=== PATIENT | male | born 1985 | race Caucasian/White ===

== ENCOUNTER 2019-11-18 22:40 | Emergency (ER) | payer OTHER, SELFPAY ==
--- NOTE | ~2019-11-18 | XR_ITS ---
EXAMINATION: XR chest 1V portable DATE: 11/18/2019 23:22 INDICATION: Palpitations. Tachycardia. Shortness of breath. TECHNIQUE: A single frontal view of the chest was obtained. COMPARISON: Chest 2 views 09/08/2016 FINDINGS: There is mild atelectasis in left lower lung zone. No pleural effusion or pneumothorax. The heart size is normal. IMPRESSION: 1. Mild atelectasis in left lower lung zone. Reviewed, dictated and finalized at location A.
[2019-11-18 22:39] VITALS: BP 157/103; PULSE 111; RESP 17; O2SAT 100
--- NOTE | 2019-11-18 22:59 | ECG_ITS ---
Measurements Intervals [place] Rate: 83 P: 39 [place]: 127 QRS: 27 QRSD: 89 T: 29 QT: 347 QTc: 409 Interpretive Statements SINUS RHYTHM WITH SINUS ARRHYTHMIA INCOMPLETE RIGHT BUNDLE BRANCH BLOCK BASELINE ARTIFACT- I, II, AVF BORDERLINE ECG Electronically Signed On 11-19-2019 7:03:17 CDT by Jesús Chamberlain D.O.
[2019-11-18] MEDS: SODIUM CHLORIDE 0.9% IV 1,000 ML 999 ML IV CONT (23:20)
--- NOTE | 2019-11-18 23:22 | ED.ARRPALP ---
HPI - Arrhythmia/Palpitations General Chief Complaint: Arrhythmia/Palpitations Stated Complaint: chest fluttering Time Seen by Provider: 11/18/19 23:10 Source: patient Mode of arrival: EMS Limitations: no limitations History of Present Illness HPI narrative: Patient is a 34-year-old male who presents to the emergency department with complaint of fluttering sensation of his heart. Patient states he has had this for years off and on. Patient states anytime he tries to do anything he feels fluttering that becomes intolerable. Patient was reportedly in atrial fibrillation per EMS. Patient denies diagnosis of heart arrhythmia. Patient states he had been treated for hypertension previously and has been treated for anxiety. MD complaint: palpitations Duration: intermittent Related Data Allergies Allergy/AdvReac Type Severity Reaction Status Date / Time No Known Allergies Allergy Unknown Unverified 11/18/19 22:47 Review of Systems Review of Systems: All systems reviewed & are unremarkable except as noted in HPI and below Cardiovascular: Cardiovascular: Denies chest pain and Reports palpitations PMFSH Past Medical History Medical History Anxiety Hypertension Social History Social History Smoking status: Former smoker Alcohol intake: former Substance use: former Exam Const: General: cooperative, no acute distress and alert Nutritional Appearance: well nourished Orientation/consciousness: patient oriented x3 Limitations: no limitations HENMT: Mouth: Yes lip normal and Yes moist mucous membranes Resp: Effort & Inspection: normal respiratory effort Auscultation: clear to auscultation bilaterally Cardio: Rate: regular rate Rhythm: regular rhythm GI: GI Palp: Yes Soft to palpation and No Tenderness to palpation present (GI) Auscultation: normal bowel sounds Skin: General skin exam: normal color Neuro: General: patient oriented x3 Cognition (Neuro): normal cognition Speech: normal speech Extrem: General: normal to inspection, full ROM and no clubbing, cyanosis or edema Psych: Mental Status: mental status grossly normal Affect: normal affect Attitude: cooperative Course Course Emergency Course: Patient remained in normal sinus rhythm throughout his ED stay. No evidence of atrial fibrillation or arrhythmia noted. Patient ambulated with supervisor landscape and no evidence of arrhythmia noted.. Patient advised to follow-up with primary care physician for further evaluation and to discuss possible Holter monitoring. Vital Signs Vital signs: Vital Signs Pulse Rate 111 H 11/18/19 22:39 Respiratory Rate 17 11/18/19 22:39 Blood Pressure 157/103 H 11/18/19 22:39 Pulse Oximetry 100 11/18/19 22:39 Pulse Rate 74 11/18/19 23:49 Respiratory Rate 16 11/18/19 23:49 Blood Pressure 139/84 11/18/19 23:49 Pulse Oximetry 97 11/18/19 23:49 MDM - Arrhythmia/Palpitations Medical Records Attestation: I reviewed the patient's medical records. Lab Data Attestation: I reviewed the patient's lab results. Result diagrams: 11/18/19 23:17 11/18/19 23:17 Labs: Lab Results 11/18/19 11/18/19 11/18/19 Range/Units 23:17 23:17 23:17 WBC 8.7 (4.5-10.0) K/mm3 RBC 5.16 (4.6-6.20) M/mm3 Hgb 15.8 (14.0-18.0) g/dL Hct 45.3 (42.0-52.0) % MCV 87.8 (80-100) fl MCH 30.6 (26-34) pg MCHC 34.9 (32-36) g/dl RDW 12.6 (11.5-14.5) % Plt Count 231 (150-375) k/mm3 MPV 10.9 H (7.4-10.4) fl Immature Gran % (Auto) 0.5 (0-0.5) % Neut % (Auto) 65.4 (45.5-73.1) % Lymph % (Auto) 21.4 (18.3-44.2) % [place] % (Auto) 9.0 H (2.6-8.5) % Eos % (Auto) 3.2 (0-4.4) % Baso % (Auto) 0.5 (0.2-1.2) % Lymph # (Auto) 1.86 (0.9-3.2) K/mm3 [place] # (Auto) 0.8 H (0.1-0.6) K/mm3 Eos # (Auto) 0.3 (0-0.3) K/
[2019-11-18 23:25] LABS: Basophils Percent Auto 0.5 % (0.2-1.2); Eosinophils Absolute Auto 0.3 K/mm3 (0-0.3); Eosinophils Percent Auto 3.2 % (0-4.4); Hematocrit 45.3 % (42.0-52.0); Hemoglobin 15.8 g/dL (14.0-18.0); Immature Granulocyte Absolute 0.04 K/mm3 (0.00-0.031); Immature Granulocyte Percent A 0.5 % (0-0.5); Lymphocytes Absolute Auto 1.86 K/mm3 (0.9-3.2); Lymphocytes Percent Auto 21.4 % (18.3-44.2); Mean Corpuscular HGB Conc 34.9 g/dl (32-36); Mean Corpuscular Hemoglobin 30.6 pg (26-34); Mean Corpuscular Volume 87.8 fl (80-100); Mean Platelet Volume 10.9 fl (7.4-10.4); Monocytes Absolute Auto 0.8 K/mm3 (0.1-0.6); Neutrophils Absolute Auto 5.7 K/mm3 (1.3-6.7); Neutrophils Percent Auto 65.4 % (45.5-73.1); Platelet Count Result 231 k/mm3 (150-375); Red Blood Count 5.16 M/mm3 (4.6-6.20); Red Cell Distribution Width 12.6 % (11.5-14.5); White Blood Count 8.7 K/mm3 (4.5-10.0)
[2019-11-18 23:41] LABS: Alanine Aminotransferase 31 U/L (4-50); Albumin Level 4.6 g/dL (3.5-5.1); Alkaline Phosphatase 71 U/L (38-126); Aspartate Amino Transferase 31 U/L (17-59); Bilirubin,Total 0.5 mg/dL (0.2-1.3); Blood Urea Nitrogen 15 mg/dL (9-20); Calcium 9.3 mg/dL (8.4-10.2); Carbon Dioxide 23 mmol/L (22-30); Chloride 102 mmol/L (98-107); Estimated Glomerular Filt Rate > 60; Glucose 118 mg/dL (75-110); Potassium 3.9 mmol/L (3.4-5.0); Sodium 135 mmol/L (137-145)
[2019-11-18 23:42] LABS: Magnesium 2.1 mg/dL (1.6-2.3)
[2019-11-18 23:49] VITALS: BP 139/84; PULSE 74; RESP 16; O2SAT 97
[2019-11-18 23:52] LABS: D Dimer 0.27 ug/mL (<0.48)
[2019-11-18 23:53] LABS: Troponin I < 0.012 ng/mL (0.000-0.034)
[2019-11-19 01:30] VITALS: BP 113/79; PULSE 77; RESP 12; O2SAT 97
== END 2019-11-19 01:30 | disposition home or self-care (01) ==
PROVIDERS: Emergency Medicine; Emergency Provider Emergency Medicine; PCP Family Medicine
DX: R00.2 Palpitations (principal); I45.10 Unspecified right bundle-branch block; Z87.891 Personal history of nicotine dependence
CPT/HCPCS: 36415; 71045; 80053; 83735; 84443; 84484; 85025; 85380; 93005; 99284; J7030

== ENCOUNTER 2020-09-09 14:30 | Outpatient (CLI) | payer OTHER, SELFPAY ==
--- NOTE | 2020-09-09 | ECHO_ITS ---
Patient Info Name: Feliciano Nicholson Age: 35 years : 1985 Gender: Male Ht: 69 in Wt: 200 lbs BSA: 2.12 m2 HR: 80 bpm BP: 135 / 90 mmHg Heart Rhythm: Sinus Rhythm Technical Quality: Good Exam Date: 09/09/2020 3:08 PM Exam Location: [facility] Patient Status: Outpatient Admit Date: 09/09/2020 Staff Ordering Physician: hSayy, Chiquita ABEL Student Life Dean: Pop Mas RDCS Attending Provider: Shayy, Chiquita ABEL Exam Type: CA echo doppler color flow Study Info Indications R00.0 - Tachycardia, unspecified Complete two-dimensional, color flow and Doppler transthoracic echocardiogram is performed. Strain analysis performed. History/Risk Factors Rapid heart beat. Summary 1. Complete two-dimensional, color flow and Doppler transthoracic echocardiogram is performed. 2. Strain analysis performed. 3. Left ventricular chamber dimension is normal. 4. Left ventricular systolic function is normal, estimated at 65-70%. 5. Left ventricular septal wall motion is normal. 6. Global longitudinal strain is abnormal at -16 %. 7. The left ventricular diastolic function is grade I diastolic dysfunction. 8. There is mild tricuspid valve regurgitation. 9. There is mild mitral valve regurgitation. Left Ventricle Left ventricular chamber dimension is normal. Left ventricular systolic function is normal, estimated at 65-70%. There is no increased left ventricular wall thickness. Left ventricular septal wall motion is normal. The left ventricular diastolic function is grade I diastolic dysfunction. Global longitudinal strain is abnormal at -16 %. Right Ventricle Right ventricular chamber dimension is normal. Right ventricular systolic function is normal. Left Atria Left atrial chamber dimension is normal. Right Atria Right atrial chamber dimension is normal. Atrial Septum Intact interatrial septum visualized by color flow imaging. Aortic Valve The aortic valve is trileaflet. There is no aortic valve sclerosis. There is no aortic valve stenosis. There is trace aortic valve regurgitation. Pulmonic Valve The pulmonic valve is normal. There is no pulmonic valve stenosis. There is trace pulmonic regurgitation. Mitral Valve The mitral valve has normal leaflets. There is no mitral valve stenosis. There is mild mitral valve regurgitation. Tricuspid Valve The tricuspid valve leaflets are normal. There is no significant tricuspid valve stenosis. There is mild tricuspid valve regurgitation. No pulmonary hypertension, estimated pulmonary arterial systolic pressure is 34 mmHg. Pericardium/Pleural The pericardium appears normal. There is no pericardial effusion. Inferior Vena Cava Normal inferior vena cava with >50% collapse upon inspiration consistent with normal right atrial pressure, 5 mmHg. Aorta The aortic root size at the sinus of Valsalva is normal. The prox ascending aorta size is normal. Left Ventricular Outflow Tract Name Value Normal LVOT Doppler LVOT Peak Gradient 4 mmHg LVOT Mean Gradient 2 mmHg LVOT VTI 19 cm LVOT VTI/AV VTI Ratio
--- NOTE | 2020-09-12 12:42 | WPDHOLTEREM ---
Holter/Event Monitor Holter/Event Monitor Date of procedure: 09/08/20 Procedure Type: 48 hour holter monitor Indications: Rapid heart beat Conclusion: 1. 48 hour holter monitor on 09/08/20. 2. Predominant rhythm is sinus rhythm. HR range 39-148 bpm; average HR 67 bpm. 3. There are 58 premature supraventricular complexes and 2 supraventricular couplets. There are 2 short runs of atrial tachycardia, fastest at 124 bpm and longest lasting 8 beats. 4. There are 17 premature ventricular complexes and 1 ventricular couplet. No ventricular tachycardia. 5. No sinoatrial or atrioventricular blocks. No significant pauses greater than 2 seconds. 6. Patient reports symptoms of heart pounding and rapid heart rate which demonstrate sinus rhythm, HR range 68-76 bpm.
== END 2020-09-09 14:31 | disposition home or self-care (01) ==
PROVIDERS: PCP Family Medicine; Visit Provider Registered Nurse
DX: R00.0 Tachycardia, unspecified (principal); I34.0 Nonrheumatic mitral (valve) insufficiency; I36.1 Nonrheumatic tricuspid (valve) insufficiency
CPT/HCPCS: 93225; 93226; 93306

== ENCOUNTER 2021-08-24 05:20 | Emergency (ER) | payer OTHER, SELFPAY ==
--- NOTE | ~2021-08-24 | XR_ITS ---
EXAMINATION: XR chest 2V DATE: 08/24/2021 07:05 INDICATION: Left chest pain. TECHNIQUE: Frontal and lateral views of the chest were obtained. COMPARISON: Chest single view 11/18/2019 FINDINGS: The chest demonstrates clear lungs without pneumonia, pleural effusion, or pneumothorax. Th e heart size is normal. IMPRESSION: 1. No acute cardiopulmonary disease. Reviewed, dictated and finalized at location A. AL CLERK
[2021-08-24 05:23] VITALS: BP 145/90; PULSE 102; RESP 14; TEMP 36.3; O2SAT 100
--- NOTE | 2021-08-24 05:31 | ECG_ITS ---
Measurements Intervals [place] Rate: 104 P: 59 [place]: 128 QRS: 35 QRSD: 87 T: 29 QT: 344 QTc: 453 Interpretive Statements SINUS TACHYCARDIA INCOMPLETE RIGHT BUNDLE BRANCH BLOCK BORDERLINE ST-T WAVE ABNORMALITY- ANTEROLAT/INF LEADS BASELINE ARTIFACT- II, III, AVR, AVF, V5 BORDERLINE ECG Electronically Signed On 08-24-2021 6:41:06 [employer] by Jesús Chamberlain D.O.
--- NOTE | 2021-08-24 05:33 | ED.CHESTPAIN ---
HPI - Chest Pain General Chief Complaint: Chest Pain Stated Complaint: Chest pain, sob, racing heart Time Seen by Provider: 08/24/21 05:22 Source: patient History of Present Illness HPI narrative: Patient presents with left-sided chest pain. Patient reports he had chest pain since noon yesterday initially started off as a cramping hours pain got progressively worse and is now having palpitations and shortness of breath so he came to the ER for evaluation. Reports he was just resting when he first noted his symptoms did not note any change with exertion or with physical activity. He denies any positional component to his pain. He denies any pleuritic nature to his pain. Reports breathing cold air appears to help his symptoms. He denies any nausea or vomiting denies any lightheadedness. Denies history of blood clots recent hospitalizations recent long travel denies any cigarette family history of cardiac disease. Reports he was seen by lieutenant shift supervisor a few months ago had a cardiac stress and everything was normal instructed follow-up with his primary care doctor Related Data Home Medications Medication Instructions Recorded Confirmed buspirone 10 mg 08/24/21 escitalopram oxalate 20 mg 08/24/21 hydroxyzine HCl 25 mg PO 08/24/21 lisinopril 10 mg PO 08/24/21 metoprolol tartrate 25 mg PO 08/24/21 Allergies Allergy/AdvReac Type Severity Reaction Status Date / Time No Known Allergies Allergy Unknown Verified 08/24/21 05:33 Review of Systems Review of Systems: CONSTITUTIONAL: Denies fever, chills, or sweats. EYES: Denies visual changes, redness, or discharge. ENT: Denies rhinorrhea, congestion, sore throat, or otalgia. CARDIOVASCULAR: Reports chest pain palpitations RESPIRATORY: Denies cough GASTROINTESTINAL: Denies abdominal pain, nausea, vomiting, or diarrhea. GENITOURINARY: Denies dysuria or hematuria. SKIN: Denies rash or itching. MUSCULOSKELETAL: Denies back pain, joint pain, or myalgia. NEUROLOGIC: Denies headache, numbness, dizziness, or weakness. PSYCHIATRIC: Denies anxiety or depression. All systems reviewed & are unremarkable except as noted in HPI and below PMFSH Past Medical History Medical History (Updated 08/24/21 @ 07:06 by Julian Farrell MD) Anxiety Hypertension Social History Social History (Updated 08/24/21 @ 05:36 by Julian Farrell MD) Smoking status: Former smoker Tobacco type: smokeless tobacco Smokeless tobacco user: chewing tobacco Alcohol intake: former Substance use: former Exam Narrative: GENERAL: Well-appearing, well-nourished, and in no acute distress. HEAD: Normocephalic, atraumatic. EYES: PERRLA and EOMI. ENT: Nares clear, no rhinorrhea or epistaxis. Mucous membranes moist. NECK: Supple. No masses. No JVD CHEST: Clear to auscultation. No respiratory distress. No wheezes rales or rhonchi HEART: Regular tachycardia. No murmur heard. Normal peripheral pulses. ABDOMEN: Soft, nontender, nondistended, normal active bowel sounds. EXTREMITIES: Normal range of motion. No edema. SKIN: Warm, dry, no rash. NEURO: No focal deficits. Alert and oriented x3. PSYCH: Normal mood and affect. Course Reevaluation(s) Reevaluation #1: Patient ports feeling much improved was also started to the patient patient is pending chest x-ray Date: 08/24/21 Time: 06:35 Vital Signs Vital signs: Vital Signs Temperature 36.3 C L 08/24/21 05:23 Pulse Rate 102 H 08/24/21 05:23 Respiratory Rate 14 08/24/21 05:23 Blood Pressure 145/90 H 08/24/21 05:23 Pulse Oximetry 100 08/24/21 05:23 Temperature 36.3 C L 08/24/21 05:23 Pulse Rate 77 08/24/21 07:18 Respiratory Rate 18 08/24/21 07:18 Blood Pressure 120/76 08/24/21 07:18 Pulse Oximetry 97 08/24/21 07:18 MDM - Chest Pain MDM Narrative Medical decision making narrative: H&P as above, vss, pt looks clinically well, exam reassuring, labs clinically unremarkable to include dimer and troponin X hours after
[2021-08-24] MEDS: SODIUM CHLORIDE 0.9% IV 1,000 ML 999 ML IV CONT (05:38)
[2021-08-24 05:49] LABS: Basophils Percent Auto 0.3 % (0.2-1.2); Eosinophils Absolute Auto 0.1 K/mm3 (0-0.3); Eosinophils Percent Auto 1.2 % (0-4.4); Hematocrit 46.6 % (42.0-52.0); Hemoglobin 16.7 g/dL (14.0-18.0); Immature Granulocyte Absolute 0.04 K/mm3 (0.00-0.031); Immature Granulocyte Percent A 0.4 % (0-0.5); Lymphocytes Absolute Auto 3.69 K/mm3 (0.9-3.2); Lymphocytes Percent Auto 39.7 % (18.3-44.2); Mean Corpuscular HGB Conc 35.8 g/dl (32-36); Mean Corpuscular Volume 86.5 fl (80-100); Monocytes Absolute Auto 0.9 K/mm3 (0.1-0.6); Monocytes Percent Auto 9.9 % (2.6-8.5); Neutrophils Absolute Auto 4.5 K/mm3 (1.3-6.7); Neutrophils Percent Auto 48.5 % (45.5-73.1); Platelet Count Result 228 k/mm3 (150-375); Red Blood Count 5.39 M/mm3 (4.6-6.20); Red Cell Distribution Width 12.2 % (11.5-14.5); White Blood Count 9.3 K/mm3 (4.5-10.0)
[2021-08-24 06:00] LABS: Alanine Aminotransferase 35 U/L (4-50); Albumin Level 4.9 g/dL (3.5-5.1); Alkaline Phosphatase 83 U/L (38-126); Anion Gap 9 mmol/L (8-16); Aspartate Amino Transferase 31 U/L (17-59); Bilirubin,Total 0.8 mg/dL (0.2-1.3); Blood Urea Nitrogen 12 mg/dL (9-20); Calcium 9.4 mg/dL (8.4-10.2); Carbon Dioxide 25 mmol/L (22-30); Chloride 101 mmol/L (98-107); Estimated CRCL calculation 88 ml/min; Estimated Glomerular Filt Rate > 60; Glucose 116 mg/dL (65-110); Potassium 3.3 mmol/L (3.4-5.0); Sodium 135 mmol/L (137-145)
[2021-08-24 06:12] LABS: Troponin I < 0.012 ng/mL (0.000-0.034)
[2021-08-24 06:29] LABS: D Dimer < 0.22 ug/mL (<0.48)
[2021-08-24 07:18] VITALS: BP 120/76; PULSE 77; RESP 18; O2SAT 97
== END 2021-08-24 07:20 | disposition home or self-care (01) ==
PROVIDERS: Emergency Provider Emergency Medicine; PCP Registered Nurse
DX: R07.89 Other chest pain (principal); I10 Essential (primary) hypertension; F41.9 Anxiety disorder, unspecified; F17.290 Nicotine dependence, other tobacco product, uncomplicated; R00.0 Tachycardia, unspecified; I45.10 Unspecified right bundle-branch block; R94.31 Abnormal electrocardiogram [ECG] [EKG]
CPT/HCPCS: 36415; 71046; 80053; 84484; 85025; 85380; 93005; 96360; 99284; A9270; J7030

== ENCOUNTER 2022-10-22 17:17 | Emergency (ER) | payer OTHER, SELFPAY ==
[2022-10-22 17:27] VITALS: BP 136/82; PULSE 77; RESP 16; TEMP 37.4; O2SAT 99
--- NOTE | 2022-10-22 17:47 | ED.EYEPROB ---
HPI - Eye Problem General Chief complaint: Eye Problems Stated complaint: left eye pain Time Seen by Provider: 10/22/22 17:47 Source: patient, RN notes reviewed and old records reviewed Mode of arrival: ambulatory Limitations: no limitations History of Present Illness HPI Narrative: 37-year-old male presents to the [facility] with complaints of a foreign body feeling in the left eye Pain to the left eye since 8:00 a.m. this morning. Patient states he was working on his chicken coop when he felt something fly into his eye. Has been watering and painful since. Related Data Home Medications Medication Instructions Recorded Confirmed lisinopril 10 mg tablet 10 mg PO DAILY 08/24/21 10/22/22 metoprolol tartrate 25 mg tablet 25 mg PO DAILY 08/24/21 10/22/22 lorazepam 0.5 mg tablet 0.5 mg PO DIRECTED 10/22/22 10/22/22 Allergies Allergy/AdvReac Type Severity Reaction Status Date / Time No Known Allergies Allergy Unknown Verified 10/22/22 17:27 Review of Systems Review of Systems: All systems reviewed & are unremarkable except as noted in HPI and below Constitutional: Constitutional: Reports no additional constitutional complaints Eyes: Eyes: Reports as per HPI, Denies blurry vision, Denies exophthalmos, Denies change in vision, Reports eye discharge and Reports eye pain ENT: Reports system reviewed and no additional complaints, except as documented Cardiovascular: Cardiovascular: Reports no additional cardiovascular complaints, Denies chest pain and Denies dyspnea Respiratory: Respiratory: Reports no additional respiratory complaints, Denies chest congestion, Denies cough and Denies dyspnea Gastrointestinal: Gastrointestinal: Reports no additional gastrointestinal complaints, Denies abdominal pain, Denies nausea and Denies vomiting Musculoskeletal: Musculoskeletal: Reports no additional musculoskeletal complaints Integumentary/Breasts: Skin/Breast: Reports system reviewed and no additional complaints, except as docu Neurologic: Reports system reviewed and no additional complaints, except as documented Psychiatric: Psychiatric: Reports no additional psychiatric complaints Allergic/Immunologic: Allergic/Immunologic: Reports no additional allergic/immunologic complaints PMFSH Past Medical History Medical History (Updated 10/22/22 @ 20:26 by Darby Bhatia APRN) Anxiety Hypertension Social History Social History Smoking status: Former smoker Tobacco type: smokeless tobacco Smokeless tobacco user: chewing tobacco Alcohol intake: former Substance use: former Comments At the time of my signature, I reviewed and agree with the nursing past medical, surgical, social, and family history. There is no relevant family history pertinent to the patient complaint. Exam Const: General: cooperative, healthy appearing, comfortable, no acute distress, well developed, alert and well nourished Nutritional Appearance: well nourished Orientation/consciousness: patient oriented x3 Limitations: no limitations HENMT: Head: normal to inspection Ears: hearing grossly normal bilaterally and external ears normal Face/Nose/Sinus: Normal external nose present, Normal nares present, Normal nasal mucous membranes and turbinates present and normal facial exam Face and sinus: normal facial exam Mouth: Yes Normal oral and palatal mucosa present, Yes lip normal and Yes moist mucous membranes Throat: posterior oropharynx normal and uvula midline Eyes: General: appearance normal, both eyes and all related structures Visual Shen: normal visual shen by confrontation Alignment and Position: alignment normal Periorbital: periorbital findings normal Conjunctivae: conjunctival abnormality left Cornea: corneas abnormal on the left foreign body at clock position (3) and fluorescein used Pupils: Equal, round and reactive pupils present EOM: EOMs intact bilaterally Eyes/u
== END 2022-10-22 18:22 | disposition home or self-care (01) ==
LOC: EXPCOLL 17:20
PROVIDERS: Emergency Provider Nurse Practitioner
DX: T15.92XA Foreign body on external eye, part unspecified, left eye, initial encounter (principal); X58.XXXA Exposure to other specified factors, initial encounter; F41.9 Anxiety disorder, unspecified; I10 Essential (primary) hypertension; Z87.891 Personal history of nicotine dependence
CPT/HCPCS: 99212; 99213; A9270; G0463